=== PATIENT | male | born 1995 | race Caucasian/White ===

== ENCOUNTER 2017-04-29 01:16 | Inpatient (IN) | payer OTHER ==
[~2017-04-29] VITALS: Ht 172.7 cm; Wt 85.0 kg
[2017-04-29 01:58] LABS: MEAN CORPUSCULAR HEMOGLOBIN 31.4 pg (27.0-33.0); MEAN CORPUSCULAR HGB CONC 36.3 g/dl (32.0-36.5); MEAN CORPUSCULAR VOLUME 86.5 fl (80.0-96.0); PLATELET COUNT, AUTOMATED 252 10^3/uL (150-450); RED CELL DISTRIBUTION WIDTH 11.1 % (11.5-14.5); WHITE BLOOD COUNT 6.3 10^3/uL (4.0-10.0)
[2017-04-29 02:22] LABS: METHADONE URINE NEGATIVE (NEGATIVE)
[2017-04-29 02:32] LABS: ALBUMIN 4.5 GM/DL (3.2-5.2); ALBUMIN/GLOBULIN RATIO 1.29 (1.00-1.93); ALKALINE PHOSPHATASE 109 U/L (45-117); ALT/SGPT 22 U/L (12-78); ANION GAP 6 MEQ/L (8-16); AST/SGOT 13 U/L (7-37); BILIRUBIN,DIRECT 0.1 MG/DL (0.0-0.2); BILIRUBIN,TOTAL 0.5 MG/DL (0.2-1.0); BLOOD UREA NITROGEN 9 MG/DL (7-18); CALCIUM LEVEL 8.9 MG/DL (8.5-10.1); CARBON DIOXIDE LEVEL 31 MEQ/L (21-32); CHLORIDE LEVEL 108 MEQ/L (98-107); CREATININE FOR GFR 0.94 MG/DL (0.70-1.30); GLUCOSE, FASTING 89 MG/DL (70-105); POTASSIUM SERUM 3.9 MEQ/L (3.5-5.1); SODIUM LEVEL 145 MEQ/L (136-145)
[2017-04-29] MEDS ORDERED: MAALOX 30 ML SUSP *UDC PO PRN (03:30)
[2017-04-29] MEDS ORDERED: traZODone 50 MG TAB PO PRN (03:30)
[2017-04-29] MEDS ORDERED: MOM 30ML SUSPENSION UDC PO PRN (03:30)
[2017-04-29] MEDS ORDERED: diphenhydrAMINE 25 MG CAP PO PRN (03:30)
[2017-04-29] MEDS ORDERED: ACETAMINOPHEN TAB 650MG DOSE (2X325MG) PO PRN (03:30)
[2017-04-29 04:16] VITALS: BP 134/78
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
[2017-04-29 18:00] VITALS: BP 141/67
[2017-04-30 06:39] VITALS: BP 116/70
--- NOTE | 2017-04-30 17:27 | MHIPN ---
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 MEDICATIONS: No psychotropic medication has been prescribed except trazodone 50 mg by mouth at bedtime as needed for insomnia. The patient does not want to be treated with medications at this point. SUBJECTIVE: "I'm feeling better." OBJECTIVE: No major changes from yesterday. The patient appears to be minimizing somewhat the events that led to the admission. The patient says that the stress, guilt and pressure were the triggers of the suicidal thoughts and attempt. MENTAL STATUS EXAMINATION: Patient dressed in [facility]. Patient is clean and well groomed. Has fair eye contact. Speech is slow and monotone. Mood is depressed and anxious. Affect is restricted. No delusions, no hallucinations. Memory, attention and concentration are fair. Patient is denying suicidal or homicidal ideations during the interview, but may be minimizing. Insight and judgment are limited. ASSESSMENT: 1. Depression. 2. Suicidal ideation. PLAN: Continue close observation and the above medication since he does not want to take antidepressants at this point, and wants psychosocial interventions only.
[2017-04-30 18:00] VITALS: BP 153/70
--- NOTE | 2017-05-01 03:10 | HPE ---
DATE OF ADMISSION: 04/29/2017 HISTORY OF PRESENT ILLNESS: Please refer to psychiatric history and evaluation for further details on this admission. This examination and history is intended for medical issues, which may need treatment, followup or consult on this 21-year-old male. ALLERGIES: No known allergies. PRIMARY CARE PROVIDER: Al Abraham. 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 Ethyl alcohol (EtOH) at least once a month. Smokes none. Recreational drug use none. PAST MEDICAL HISTORY: Negative. PAST SURGICAL HISTORY: Negative. HOME MEDICATIONS: None. LABORATORY STUDIES: WBC 6.3, hemoglobin 17.4, hematocrit 48.0, platelets 252. Sodium 145, potassium 3.9, chloride 108, CO2 31, BUN 9, creatinine 0.94. EtOH was 0.125. FAMILY HISTORY: Noncontributory. REVIEW OF SYSTEMS: 10-system review was done, was unremarkable. OBJECTIVE: 21-year-old cooperative male in no acute distress. Height 68 inches, weight 86 kg, body mass index (BMI) 28.8. Blood pressure 134/78, pulse 96, respirations 20, temperature 99. Patient is alert and oriented times three. Pupils equal and react to light. Extraocular muscles intact. Cornea and sclerae clear. Conjunctivae were normal. No facial asymmetry. Pharynx, tongue and gums pink and moist. Tongue is midline. Neck is supple without lymphadenopathy. No thyromegaly, no goiter. Chest clear to auscultation without wheeze or retraction. Heart is regular. Abdomen is benign. Bowel sounds positive. Genitourinary/rectal: Not done. Extremities show equal strength, full range of motion. No cyanosis, clubbing or edema. Peripheral pulses equal and palpable bilaterally. Skin is warm and dry. IMPRESSION/PLAN: Psychiatric plan per psychiatry. No acute medical issues.
[2017-05-01 06:00] VITALS: BP 155/90
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
== END 2017-05-01 12:49 | disposition home or self-care (01) | DRG 882 ==
LOC: M ED 01:16 → M ED INP 03:27 → M PSY 04:16
PROVIDERS: ADMIT Psychiatry & Neurology Psychiatry; ATTEND Psychiatry & Neurology Psychiatry
DX: F43.23 Adjustment disorder with mixed anxiety and depressed mood (principal); F10.10 Alcohol abuse, uncomplicated